=== PATIENT | female | born 1945 | race Caucasian/White ===

== ENCOUNTER → 2019-01-13 | Outpatient (CLI) | payer MEDICARE, OTHER ==
[~2019-01-13] MED LIST: AMBIEN 10MG10 M1 PO; AMBIEN 5MG TABLE5 MG PO; ASPIRIN E.C. 8181 MG PO; ATENOLOL; ATORVASTATIN; BUPROPRION PO; CALCIUM + D 6001 TA1 PO; CIPRO 500MG TA500 MG PO; CLONAZEPAM PO; COLON HEALTH PO; ECOTRIN325 MG PO; FIORICET W/CODE1 CA1 PO; FORTAMET500 MG PO; GARLIC1 TAB PO; GLUCOPHAGE XR500 M1 PO; HYDROCHLOR50 MG PO; KLONOPIN 0.5MG0.5 MG PO; KLONOPIN0.5 MG PO; LEVOTHYROXINE PO; LIPITOR 80MG80 MG PO; LIPITOR80 MG PO; LORTAB 5/500 501 TAB PO; MICARDIS80 MG PO; MIDRIN; MULTIVITAMIN1 TA1 PO; NAPROSYN500 MG PO; NATURAL E400 IU PO; OMEGA 31000 MG PO; SERTRALINE; SOME BP MED; SYNTHROID0.05 MG PO; SYNTHROID0.075 MG/T PO; TENORMIN50 MG PO; VITAMIN C PUR1000 MG PO; WELLBUTRIN PO; WELLBUTRIN SR150 M1 PO; ZOLOFT100 MG PO
== END ==
LOC: COL.RAD 09:48
DX: G31.9 Degenerative disease of nervous system, unspecified (principal); E11.9 Type 2 diabetes mellitus without complications; H55.00 Unspecified nystagmus
CPT/HCPCS: A9585

== ENCOUNTER 2021-01-31 14:45 | Outpatient (RCR) | payer MEDICARE, OTHER | END 2021-04-10 | disposition still patient (30) | LOC: MKS.ESL.OT | DX: M54.12 Radiculopathy, cervical region (principal) ==